=== PATIENT | male | born 1995 | race Two or more races ===

== ENCOUNTER 2017-06-15 12:13 | Emergency (ER) | payer SELFPAY ==
[~2017-06-15] VITALS: Ht 170.2 cm; Wt 59.0 kg
[2017-06-15] MEDS ORDERED: DIPHTH,PERTUSS(ACELL),TET TOX 0.5 ML DISP.SYRIN. VAX IM ONE (13:15)
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
[2017-06-15 15:22] VITALS: BP 120/65
== END 2017-06-15 15:27 | disposition home or self-care (01) ==
LOC: ER 12:13
DX: S51.801A Unspecified open wound of right forearm, initial encounter (principal); F17.200 Nicotine dependence, unspecified, uncomplicated; W34.00XA Accidental discharge from unspecified firearms or gun, initial encounter; Y93.89 Activity, other specified; Y92.89 Other specified places as the place of occurrence of the external cause; Y99.8 Other external cause status
CPT/HCPCS: 73080; 90471; 90715; 99284-25